=== PATIENT | female | born 1985 | race Hispanic/Latino ===

== ENCOUNTER 2017-11-16 09:47 | Inpatient (IN) | payer MEDICAID, OTHER ==
[~2017-11-16] VITALS: Ht 152.4 cm; Wt 81.6 kg
[2017-11-16 10:45] LABS: BASOPHILS % (AUTO) 0.3 % (0.0-5.0); EOSINOPHILS % (AUTO) 0.4 % (0.0-8.0); LYMPHOCYTES % (AUTO) 21.8 % (21.0-51.0); MEAN CORPUSCULAR HEMOGLOBIN 24.1 pg (27.0-33.0); MEAN CORPUSCULAR HGB CONC 32.1 g/dL (32.0-36.0); MEAN CORPUSCULAR VOLUME 74.9 fL (79-99); MONOCYTES % (AUTO) 5.6 % (3.0-13.0); NEUTROPHILS % (AUTO) 71.9 % (40.0-77.0); PLATELET COUNT (AUTO) 163 K/uL (130-400); RED BLOOD CELL COUNT(AUTO) 4.81 MIL/uL (4.00-5.50); RED CELL DISTRIBUTION WIDTH 15.8 % (11.0-15.5)
[2017-11-16 10:52] LABS: INR 0.88 (0.85-1.15); PARTIAL THROMBOPLASTIN TIME 26.8 SEC (26.3-35.5); PROTHROMBIN TIME 9.3 SEC (9.6-11.6)
[2017-11-16 10:54] LABS: CREATININE 0.6 mg/dL (0.5-1.5); POTASSIUM 3.4 mmol/L (3.5-5.1)
[2017-11-16 10:58] LABS: ALBUMIN 2.7 g/dL (3.5-5.0); BILIRUBIN,TOTAL 0.4 mg/dL (0.2-1.0); TOTAL PROTEIN, SERUM 7.9 g/dL (6.0-8.3); URIC ACID 4.6 mg/dL (2.6-7.2)
[2017-11-16] MEDS ORDERED: CEFAZOLIN SODIUM 1 GM VIAL ONE (11:03)
[2017-11-16] MEDS ORDERED: OXYTOCIN 10 UNIT/1ML 10ML VIAL ONE (11:10)
[2017-11-16] MEDS ORDERED: FENTANYL CITRATE PF 50 MCG/1 ML 2ML VIAL ONE (11:10)
[2017-11-16] MEDS ORDERED: PROPOFOL 10 MG/ML 20ML VIAL IV ONE (11:10)
[2017-11-16] MEDS ORDERED: SUCCINYLCHOLINE CHLORIDE 20 MG/ML 10 ML VIAL ONE (11:10)
[2017-11-16] MEDS ORDERED: DURAMORPH PF1 MG/ML 10ML AMP IV ONE (11:11)
[2017-11-16] MEDS ORDERED: CEFAZOLIN SODIUM 1 GM VIAL IVP PRN (11:15)
[2017-11-16] MEDS ORDERED: LACTATED RINGERS 1000ML 1,000 ML IV SCH (11:15)
[2017-11-16] MEDS ORDERED: SENSORCAINE/DEXT/PF 0.75% 2ML AMP IJ ONE (11:16)
[2017-11-16] MEDS ORDERED: CEFAZOLIN SODIUM 1 GM VIAL IVP ONE (11:28)
[2017-11-16] MEDS ORDERED: KETOROLAC TROMETHAMINE 30MG/ML ONE (11:46)
[2017-11-16] MEDS ORDERED: ONDANSETRON HCL 4 MG/2 ML VIAL ONE (11:48)
[2017-11-16 12:13] LABS: APPEARANCE,URINE Clear (CLEAR); BILIRUBIN,URINE Small (NEGATIVE); COLOR,URINE Dark Yellow (YELLOW); GLUCOSE, URINE (UA) Negative (NEGATIVE); KETONES,URINE 15 mg/dL (NEGATIVE); LEUKOCYTE ESTERASE ,URINE Small (NEGATIVE); NITRATE,URINE Negative (NEGATIVE); OCCULT BLOOD,URINE Negative (NEGATIVE); PROTEIN,URINE POS 1+ (NEGATIVE)
[2017-11-16 12:24] LABS: AMPHET/METH SCREEN,URINE NEGATIVE (NEGATIVE); BARBITURATE SCREEN, URINE NEGATIVE (NEGATIVE); BENZODIAZEPINES SCREEN,URINE NEGATIVE (NEGATIVE); CANNABINOID SCREEN,URINE NEGATIVE (NEGATIVE); COCAINE SCREEN,URINE NEGATIVE (NEGATIVE); OPIATE SCREEN,URINE NEGATIVE (NEGATIVE); PHENCYCLIDINE SCREEN,URINE NEGATIVE (NEGATIVE)
[2017-11-16 12:38] LABS: BACTERIA,URINE Few /HPF (None Seen); RBC,URINE None Seen /HPF (0-1)
[2017-11-16 13:50] VITALS: BP 102/71
[2017-11-16] MEDS ORDERED: PREN-154 PO (14:09)
[2017-11-16] MEDS ORDERED: OXYTOCIN-LR 20 UNITS/1000 ML 1,000 ML IV PRN (14:28)
[2017-11-16] MEDS ORDERED: SODIUM CHLORIDE 0.9% 10 ML VIAL IVP PRN (14:30)
[2017-11-16] MEDS ORDERED: HYDROCODONE/ACETAMINOPHEN 5/325 MG TAB ONE (14:43)
[2017-11-16] MEDS ORDERED: OXYTOCIN 10 USP UNITS/ML ONE (14:49)
[2017-11-16] MEDS: DiphenhydrAMINE HCL 50 MG/ML VIAL IVP PRN ×2 (15:20→19:32)
[2017-11-16 15:24] VITALS: BP 118/74
[2017-11-16] MEDS ORDERED: METOCLOPRAMIDE 10 MG/2 ML VIAL IVP PRN (15:30)
[2017-11-16] MEDS ORDERED: HYDROCODONE/ACETAMINOPHEN 5/325 MG TAB PO PRN (15:30)
[2017-11-16] MEDS ORDERED: PROMETHAZINE HCL 25 MG/ML 1ML AMPULE IM PRN (15:30)
[2017-11-16] MEDS ORDERED: ONDANSETRON HCL 4 MG/2 ML VIAL IVP PRN (15:30)
[2017-11-16] MEDS ORDERED: NALOXONE HCL 0.4 MG/1 ML ML IVP PRN ×2 (15:30)
[2017-11-16] MEDS ORDERED: EPHEDRINE SULFATE 50 MG/ML AMPULE IVP PRN (15:30)
[2017-11-16] MEDS ORDERED: ONDANSETRON HCL 4 MG/2 ML 8 MG in SODIUM CHLORIDE 0.9% 50 ML IVP NR (15:30)
[2017-11-16] MEDS ORDERED: MORPHINE SULFATE 2 MG/ML 1ML SYG IVP PRN (15:30)
[2017-11-16] MEDS: ONDANSETRON HCL 4 MG/2 ML VIAL IVP PRN ×2 (17:19→22:40)
[2017-11-16 19:53] VITALS: BP 110/64
[2017-11-16] MEDS: DEXTROSE 5 %-0.45 % NACL 1,000 ML IV PRN (20:19)
[2017-11-16] MEDS: HYDROCODONE/ACETAMINOPHEN 5/325 MG TAB PO PRN (22:40)
[2017-11-17 00:38] VITALS: BP 103/67
[2017-11-17] MEDS: DiphenhydrAMINE HCL 50 MG/ML VIAL IVP PRN (00:50)
[2017-11-17 03:06] VITALS: BP 96/62
[2017-11-17] MEDS: DEXTROSE 5 %-0.45 % NACL 1,000 ML IV PRN (03:11)
[2017-11-17] MEDS: HYDROCODONE/ACETAMINOPHEN 5/325 MG TAB PO PRN (03:19)
[2017-11-17] MEDS: ONDANSETRON HCL 4 MG/2 ML VIAL IVP PRN (04:41)
[2017-11-17] MEDS ORDERED: BISACODYL 10 MG SUPP.RECT RC PRN (05:15)
[2017-11-17] MEDS ORDERED: LANOLIN 30GM OINTMENT TP PRN (05:15)
[2017-11-17] MEDS ORDERED: ACETAMINOPHEN EXTRA STRENGTH 500 MG TABLET PO PRN (05:15)
[2017-11-17] MEDS ORDERED: HYDROCODONE/ACETAMINOPHEN 5/325 MG TAB PO PRN (05:15)
[2017-11-17 05:27] LABS: HEMATOCRIT 29.7 % (36-48); MEAN CORPUSCULAR HEMOGLOBIN 24.8 pg (27.0-33.0); MEAN CORPUSCULAR HGB CONC 32.5 g/dL (32.0-36.0); MEAN CORPUSCULAR VOLUME 76.5 fL (79-99); PLATELET COUNT (AUTO) 152 K/uL (130-400); RED BLOOD CELL COUNT(AUTO) 3.89 MIL/uL (4.00-5.50); RED CELL DISTRIBUTION WIDTH 15.8 % (11.0-15.5); WHITE BLOOD COUNT (AUTO) 8.5 K/uL (4.8-10.8)
[2017-11-17 07:17] LABS: RAPID PLASMA REAGIN REACTIVE (NONREACTIVE)
[2017-11-17] MEDS: DIPHENHYDRAMINE HCL 25 MG CAPSULE PO PRN ×4 (08:02→21:20)
[2017-11-17] MEDS: DOCUSATE SODIUM 100 MG CAP PO SCH ×2 (08:02→21:20)
[2017-11-17] MEDS: SIMETHICONE 80 MG TAB.CHEW PO PRN ×2 (08:02→17:11)
[2017-11-17] MEDS: IBUPROFEN 600 MG TABLET PO PRN ×3 (08:03→21:21)
[2017-11-17 08:12] VITALS: BP 109/67
[2017-11-17 08:22] LABS: HEPATITIS Bs ANTIGEN SCREEN P Negative (Negative)
[2017-11-17 08:33] LABS: RAPID PLASMA REAGIN TITER REACTIVE 1:4 (NONREACTIVE)
[2017-11-17 11:44] VITALS: BP 95/64
[2017-11-17] MEDS: ACETAMINOPHEN-CODEINE 300/30MG TAB PO PRN ×3 (11:47→23:34)
[2017-11-17 15:56] VITALS: BP 105/64
[2017-11-17 19:46] VITALS: BP 100/63
[2017-11-18 00:14] VITALS: BP 86/52
[2017-11-18 03:14] VITALS: BP 89/54
[2017-11-18] MEDS: IBUPROFEN 600 MG TABLET PO PRN ×2 (05:26→11:49)
[2017-11-18 07:37] VITALS: BP 106/55
[2017-11-18] MEDS: ACETAMINOPHEN-CODEINE 300/30MG TAB PO PRN (08:01)
[2017-11-18] MEDS: DOCUSATE SODIUM 100 MG CAP PO SCH (08:56)
[2017-11-18] MEDS: SIMETHICONE 80 MG TAB.CHEW PO PRN (08:56)
[2017-11-18 11:35] VITALS: BP 111/56
== END 2017-11-18 14:00 | disposition home or self-care (01) | DRG 788 ==
LOC: EDBD 09:47 → LDH 09:47 → WSH 13:50
PROVIDERS: ADMIT Obstetrics & Gynecology; ATTEND Obstetrics & Gynecology
PROC: 10D00Z1 Extraction of Products of Conception, Low, Open Approach (ICD-10-PCS; principal; 2017-11-16 11:00)
DX: O34.211 Maternal care for low transverse scar from previous cesarean delivery (principal); O69.81X0 Labor and delivery complicated by cord around neck, without compression, not applicable or unspecified; Z37.0 Single live birth; O16.4 Unspecified maternal hypertension, complicating childbirth; Z3A.38 38 weeks gestation of pregnancy
CPT/HCPCS: 36415; 59510; 80053; 80305; 81001; 84550; 85025; 85027; 85384; 85610; 85730; 86592; 86780; 86850; 86900; 86901; 87340; A4344; A4450; A4606; J0330; J0690; J1200; J1885; J2274; J2405; J2590; J2704; J3010; J3490; J7120; Q0163

== ENCOUNTER 2018-10-18 04:51 | Inpatient (IN) | payer MEDICAID, OTHER ==
[~2018-10-18] VITALS: Ht 157.5 cm; Wt 86.6 kg
[~2018-10-18 04:51] MED LIST: PREN-154 PO
[2018-10-18] MEDS ORDERED: CEFAZOLIN SODIUM 1 GM VIAL IVP PRN (05:15)
[2018-10-18] MEDS ORDERED: LACTATED RINGERS 1000ML 1,000 ML IV SCH (05:15)
[2018-10-18 05:37] LABS: HEMATOCRIT 30.1 % (36-48); MEAN CORPUSCULAR HEMOGLOBIN 23.3 pg (27.0-33.0); MEAN CORPUSCULAR HGB CONC 32.2 g/dL (32.0-36.0); MEAN CORPUSCULAR VOLUME 72.4 fL (79-99); PLATELET COUNT (AUTO) 163 K/uL (130-400); RED BLOOD CELL COUNT(AUTO) 4.16 MIL/uL (4.00-5.50); RED CELL DISTRIBUTION WIDTH 16.5 % (11.0-15.5); WHITE BLOOD COUNT (AUTO) 8.5 K/uL (4.8-10.8)
[2018-10-18 05:45] VITALS: BP 134/87
[2018-10-18] MEDS ORDERED: ACET325C6 PO (05:48)
[2018-10-18] MEDS ORDERED: DURAMORPH PF1 MG/ML 10ML AMP IV ONE (06:15)
[2018-10-18] MEDS ORDERED: OXYTOCIN 10 UNIT/1ML 10ML VIAL ONE (06:15)
[2018-10-18] MEDS ORDERED: ONDANSETRON HCL 4 MG/2 ML VIAL ONE (06:15)
[2018-10-18] MEDS ORDERED: FENTANYL CITRATE PF 50 MCG/1 ML 2ML VIAL ONE (06:16)
[2018-10-18] MEDS ORDERED: METHYLERGONOVINE MALEATE 0.2 MG/1 ML ML ONE (06:33)
[2018-10-18] MEDS ORDERED: GLYCOPYRROLATE 1 MG/5 ML SYRINGE ONE (06:56)
[2018-10-18] MEDS: DiphenhydrAMINE HCL 50 MG/ML VIAL IVP PRN ×2 (08:13→16:48)
[2018-10-18] MEDS ORDERED: LANOLIN 30GM OINTMENT TP PRN (08:15)
[2018-10-18] MEDS ORDERED: ACETAMINOPHEN EXTRA STRENGTH 500 MG TABLET PO PRN (08:15)
[2018-10-18] MEDS ORDERED: BISACODYL 10 MG SUPP.RECT RC PRN (08:15)
[2018-10-18] MEDS ORDERED: NALOXONE HCL 0.4 MG/1 ML ML IVP PRN ×3 (08:15)
[2018-10-18] MEDS: DOCUSATE SODIUM 100 MG CAP PO SCH ×2 (09:00→20:28)
[2018-10-18] MEDS ORDERED: DEXAMETHASONE SOD PHOSPHATE 4 MG/ML 1ML VIAL IVP PRN (09:15)
[2018-10-18 09:23] LABS: RAPID PLASMA REAGIN REACTIVE (NONREACTIVE)
[2018-10-18] MEDS ORDERED: DEXAMETHASONE 10MG/ML 1ML VIAL 10 MG in SODIUM CHLORIDE 0.9% 50 ML IV SCH (09:30)
[2018-10-18 09:37] LABS: RAPID PLASMA REAGIN TITER REACTIVE 1:2 (NONREACTIVE)
[2018-10-18 10:10] VITALS: BP 130/92
[2018-10-18] MEDS ORDERED: OXYTOCIN-LR 20 UNITS/1000 ML 1,000 ML IV ONE (10:38)
[2018-10-18] MEDS: HYDROCODONE/ACETAMINOPHEN 5/325 MG TAB PO PRN ×3 (10:42→23:29)
[2018-10-18] MEDS: ONDANSETRON HCL 4 MG/2 ML VIAL IVP PRN ×2 (10:46→20:28)
[2018-10-18 11:59] VITALS: BP 123/80
[2018-10-18 16:25] VITALS: BP 118/78
[2018-10-18] MEDS: DEXTROSE 5 %-0.45 % NACL 1,000 ML IV PRN (18:07)
[2018-10-18] MEDS ORDERED: SODIUM CHLORIDE 0.9% 10 ML VIAL IVP PRN (18:30)
[2018-10-18 19:26] VITALS: BP 109/72
[2018-10-18] MEDS: ACETAMINOPHEN-CODEINE 300/30MG TAB PO PRN (20:21)
[2018-10-18] MEDS: SIMETHICONE 80 MG TAB.CHEW PO PRN (20:28)
[2018-10-18 23:30] VITALS: BP 111/78
[2018-10-19] MEDS: DEXTROSE 5 %-0.45 % NACL 1,000 ML IV PRN (01:53)
[2018-10-19 04:10] VITALS: BP 111/76
[2018-10-19] MEDS: ACETAMINOPHEN-CODEINE 300/30MG TAB PO PRN ×3 (04:11→16:12)
[2018-10-19] MEDS: IBUPROFEN 600 MG TABLET PO PRN ×3 (05:41→19:38)
[2018-10-19 06:06] LABS: HEMATOCRIT 32.1 % (36-48); MEAN CORPUSCULAR HEMOGLOBIN 23.1 pg (27.0-33.0); MEAN CORPUSCULAR HGB CONC 31.5 g/dL (32.0-36.0); MEAN CORPUSCULAR VOLUME 73.1 fL (79-99); NUCLEATED RED BLOOD CELLS 0.1 % (0.0-0.19); PLATELET COUNT (AUTO) 174 K/uL (130-400); RED CELL DISTRIBUTION WIDTH 16.3 % (11.0-15.5); WHITE BLOOD COUNT (AUTO) 10.9 K/uL (4.8-10.8)
[2018-10-19 07:30] VITALS: BP 117/72
[2018-10-19] MEDS: DOCUSATE SODIUM 100 MG CAP PO SCH ×2 (09:44→21:15)
[2018-10-19] MEDS: SIMETHICONE 80 MG TAB.CHEW PO PRN ×3 (09:44→21:15)
[2018-10-19 11:28] VITALS: BP 126/62
[2018-10-19 16:09] VITALS: BP 129/68
[2018-10-19 19:11] VITALS: BP 130/80
[2018-10-19] MEDS: HYDROCODONE/ACETAMINOPHEN 5/325 MG TAB PO PRN (21:25)
[2018-10-19 23:28] VITALS: BP 112/70
[2018-10-20 03:45] VITALS: BP 99/68
[2018-10-20] MEDS: ACETAMINOPHEN-CODEINE 300/30MG TAB PO PRN (04:04)
[2018-10-20 07:20] VITALS: BP 116/70
[2018-10-20] MEDS: DOCUSATE SODIUM 100 MG CAP PO SCH (08:23)
[2018-10-20] MEDS: SIMETHICONE 80 MG TAB.CHEW PO PRN (08:24)
[2018-10-20] MEDS: IBUPROFEN 600 MG TABLET PO PRN (08:24)
== END 2018-10-20 11:00 | disposition home or self-care (01) | DRG 788 ==
LOC: LDH 04:51 → WSH 10:10
PROVIDERS: ADMIT Obstetrics & Gynecology; ATTEND Obstetrics & Gynecology
PROC: 10D00Z1 Extraction of Products of Conception, Low, Open Approach (ICD-10-PCS; principal; 2018-10-18 09:00)
DX: O34.211 Maternal care for low transverse scar from previous cesarean delivery (principal); O99.62 Diseases of the digestive system complicating childbirth; K66.0 Peritoneal adhesions (postprocedural) (postinfection); K21.9 Gastro-esophageal reflux disease without esophagitis; Z37.0 Single live birth; Z3A.38 38 weeks gestation of pregnancy
CPT/HCPCS: 36415; 59510; 85027; 86592; 86701; 86780; 86850; 86900; 86901; 87390; A4344; A4450; A4606; G0378; J0690; J1100; J1200; J2210; J2274; J2405; J2590; J3010; J3490; J7120